=== PATIENT | female | born 1970 | race Caucasian/White ===

== ENCOUNTER 2024-12-30 12:51 | Emergency (ER) | payer BC ==
[~2024-12-30] VITALS: Ht 162.6 cm; Wt 79.4 kg
[2024-12-30 12:55] VITALS: BP 122/99; TEMP 98.4
[2024-12-30] MEDS: BETAMETHASONE DIP 0.05% CREAM 15 GM TUBE TP SCH (13:48)
[2024-12-30 13:50] VITALS: O2SAT 95
== END 2024-12-30 13:52 | disposition home or self-care (01) ==
LOC: ER 12:59
DX: M25.841 Other specified joint disorders, right hand (principal); M25.842 Other specified joint disorders, left hand; R20.2 Paresthesia of skin; F17.200 Nicotine dependence, unspecified, uncomplicated; M79.7 Fibromyalgia; Z88.2 Allergy status to sulfonamides